=== PATIENT | female | born 1965 | race Caucasian/White ===

== ENCOUNTER 2019-02-21 11:38 | Day surgery (SDC) | payer OTHER ==
[2019-02-20 16:16] VITALS: BMI 22.4
[2019-02-21 12:03] LABS: BASO % 1.4 % (0-2.0); EOS % 1.5 % (0-4.5); HEMATOCRIT 41.4 % (32.4-45.2); HEMOGLOBIN 14.3 GM/dL (10.7-15.3); LYMPH % 37.6 % (8-40); MCH 31.7 pg (25.7-33.7); MCHC 34.6 g/dl (32.0-36.0); MEAN CELL VOLUME 91.7 fl (80-96); MEAN PLT VOLUME 8.9 fl (7.5-11.1); MONO % 10.1 % (3.8-10.2); NEUT % 49.4 % (42.8-82.8); PLATELET COUNT 148 K/MM3 (134-434); RBC 4.52 M/mm3 (3.60-5.2); RDW 12.9 % (11.6-15.6)
[2019-02-21 12:08] LABS: EPI CELLS 8.1 /HPF (0-5/HPF); URINE APPEARANCE CLEAR; URINE BILIRUBIN NEGATIVE (NEGATIVE); URINE CASTS 5 /lpf (0-8); URINE COLOR YELLOW; URINE GLUCOSE (UA) NEGATIVE (NEGATIVE); URINE KETONE NEGATIVE (NEGATIVE); URINE LEUK ESTERASE TRACE (NEGATIVE); URINE NITRITE NEGATIVE (NEGATIVE); URINE PROTEIN NEGATIVE (NEGATIVE); URINE RBC 1 /hpf (0-4); URINE UROBILINOGEN 0.2 mg/dL (0.2-1.0); URINE WBC 7 /hpf (0-5)
[2019-02-21 12:17] LABS: INR 1.08 (0.83-1.09); PROTHROMBIN TIME (PATIENT) 12.7 SEC (9.7-13.0)
[2019-02-21 12:34] LABS: ALBUMIN 4.2 g/dl (3.4-5.0); ALK PHOS 90 U/L (45-117); ANION GAP 4 MMOL/L (8-16); BILIRUBIN,TOTAL 0.8 mg/dL (0.2-1); BLOOD UREA NITROGEN 20 mg/dL (7-18); CALCIUM 9.3 mg/dL (8.5-10.1); CHLORIDE 105 mmol/L (98-107); CO2 29 mmol/L (21-32); CREATININE 0.7 mg/dL (0.55-1.3); GLUCOSE,RANDOM 82 mg/dL (74-106); POTASSIUM 4.4 mmol/L (3.5-5.1); SGOT/AST 21 U/L (15-37); SGPT/ALT 21 U/L (13-61); SODIUM 138 mmol/L (136-145); TOT PROT 7.6 g/dl (6.4-8.2)
--- NOTE | 2019-02-21 13:07 | HP ---
History & Physical Update - History History: No Change - Physical Physical: No Change - Assessment Assessment: No Change - Plan Plan: No Change
[2019-02-21] MEDS ORDERED: ROCURONIUM BROMIDE 50 MG/5 ML VIAL ONE (13:15)
[2019-02-21] MEDS ORDERED: KETAMINE HCL 200 MG/20 ML VIAL ONE (13:15)
[2019-02-21] MEDS ORDERED: MIDAZOLAM HCL 2 MG/2 ML SINGLE DOSE VIAL ONE (13:15)
[2019-02-21] MEDS ORDERED: DESFLURANE GAS 240 ML BOTTLE IH ONE (13:32)
[2019-02-21] MEDS ORDERED: KETOROLAC TROMETHAMINE 30 MG/1 ML VIAL ONE (13:52)
[2019-02-21] MEDS ORDERED: ONDANSETRON 4 MG/2 ML VIAL IVPUSH PRN (13:54)
[2019-02-21] MEDS ORDERED: oxyCODONE HCL 5 MG TABLET PO PRN (13:54)
[2019-02-21] MEDS ORDERED: LACTATED RINGERS SOLUTION 1,000 ML IV SCH (14:00)
[2019-02-21] MEDS ORDERED: ceFAZolin SODIUM 1 GM VIAL IVPB ONE (14:03)
[2019-02-21] MEDS ORDERED: ePHEDrine SULFATE 50 MG/1 ML AMPULE ONE (14:05)
[2019-02-21] MEDS ORDERED: GLYCOPYRROLATE 0.2 MG/1 ML VIAL ONE (14:18)
[2019-02-21] MEDS ORDERED: NEOSTIGMINE METHYLSULFATE 0.5 MG/ML - 10 ML MDV ONE (14:18)
[2019-02-21] MEDS ORDERED: BUPIVACAINE HCL/PF 0.25% (2.5MG/ML) 10 ML VIAL IJ ONE (14:46)
--- NOTE | 2019-02-21 15:17 | OP ---
<Leilani Lane - Last Filed: 02/21/19 15:12> Operative Note - Note: Operative Date: 02/21/19 Pre-Operative Diagnosis: abdominal pain, dyspareunia Operation: dilation and currettage, endometrial polyp biopsy, laparoscopy with enterolysis Surgeon: Santi Mcbride Co Founder And President: Leilani Lane Anesthesiologist/CAFE WORKER: Debbie Houser Anesthesia: General Specimens Removed: endometrial polpy biopsy and endometrial currettings Estimated Blood Loss (mls): 10 Blood Volume Replaced (mls): 50 Fluid Volume Replaced (mls): 1,200 Operative Report Dictated: Yes <Santi Mcbride - Last Filed: 02/21/19 15:20> Operative Note - Note: Blood Volume Replaced (mls): 0
--- NOTE | 2019-02-21 15:18 | SURG ---
Surgery Utility Person Note Utility Person: Leilani Lane PA-C Date of Service: 02/21/19 Diagnosis: abdominal pain, dyspareunia Procedure: dilation and currettage, endometrial polyp biopsy, laparoscopy with enterolysis I was present for the entirety of the operative procedure. For further detail, please refer to operative report.
[2019-02-21] MEDS ORDERED: ATROPINE SULFATE 1 MG/10 ML DISP.SYRIN ONE (15:41)
[2019-02-21] MEDS ORDERED: ACETAMINOPHEN 1000 MG/100 ML VIAL (NON FORMULARY) IVPB ONE ×2 (15:45→16:51)
[2019-02-21] MEDS ORDERED: ACETAMINOPHEN INJECTION 100 ML IVPB ONE (15:48)
[2019-02-21] MEDS ORDERED: ATROPINE SO4 0.4 MG/1 ML VIAL IVPUSH ONE (16:51)
[2019-02-21 19:18] VITALS: BP 110/64; PULSE 55; TEMP 97.9
[2019-02-22] MEDS ORDERED: ESTRADIOL 1 MG PO SCH (10:00)
[2019-02-22] MEDS ORDERED: MULTIVITAMINS (DAILY MVI) TABLET (FP) PO SCH (10:00)
[2019-02-22] MEDS ORDERED: CHOLECALCIFEROL (VITAMIN D3) 1,000 UNIT TABLET (FP) PO SCH (10:00)
--- NOTE | 2019-02-23 18:00 | PATH ---
Surgical Pathology Report Patient Name: DAMI BRITTON [facility]. Rec. #: [id number] /Age/Gender: 1965 (Age: 53) / F Account: [id number] Location: [facility] SURGICAL Taken: 02/21/2019 Received: 02/22/2019 Reported: 02/23/2019 Physicians: Karan Rowan MD Specimen(s) Received A: ENDOMETRIAL CURETTINGS B: ENDOMETRIAL POLYP Clinical History Ovarian cyst, pelvic pain, polyp corpus uteri Final Diagnosis A. ENDOMETRIAL CURETTINGS, DILATION AND CURETTAGE: POLYPOID FRAGMENTS OF PROLIFERATIVE ENDOMETRIUM WITHIN A FIBROUS STROMA CONSISTENT WITH ENDOMETRIAL POLYP. B. ENDOMETRIAL POLYP, POLYPECTOMY: POLYPOID FRAGMENTS OF PROLIFERATIVE ENDOMETRIUM WITHIN A FIBROUS STROMA CONSISTENT WITH ENDOMETRIAL POLYP. Electronically Signed Hannah Steen M.D. Gross Description A. Received in formalin labeled "endometrial curettings," is a 1.6 cm greatest dimension rosas soft tissue fragment. The formalin is filtered and the specimen is submitted in toto in one cassette. B. Received in formalin labeled "endometrial polyp," is a 2.0 x 1.4 x 0.2 cm aggregate of rosas, irregular to polypoid portions of soft tissue. The specimen is submitted in toto in one cassette. /02/22/2019 saudi02/22/2019
--- NOTE | 2019-03-06 09:54 | OP ---
DATE OF OPERATION: 02/21/2019 PREOPERATIVE DIAGNOSES: 1. Chronic, intractable, deteriorating pelvic pain of 6 months' duration. 2. History of ovarian cyst. 3. Endometrial polyp. POSTOPERATIVE DIAGNOSES: 1. Chronic, intractable, deteriorating pelvic pain of 6 months' duration. 2. History of ovarian cyst. 3. Endometrial polyp. 4. Left-sided pelvic adhesions between small intestines, pelvic sidewall, and left round ligament. OPERATION: 1. Hysteroscopy. 2. Polypectomy. 3. Dilatation and curettage. 4. Exploratory laparoscopy. 5. Laparoscopic lysis of left-sided adhesions. SURGEON: Santi Mcbride MD ANESTHESIA: General. PULP MIXER: HANS PROCEDURE AND FINDINGS: Under general anesthesia in dorsal lithotomy position, patient was prepped and draped in the usual way. Pelvic examination was done under anesthesia with uterus being essentially normal size and no adnexal pathology. Minimal pelvic relaxation was noted. Cervix was grasped with a tenaculum, and hysteroscopy was carried out. Left-sided fundal polyp, at least 2 cm in size, was noted in the background of atrophic endometrium. Endocervix was within normal limits. Hysteroscope was withdrawn, and saline was allowed to escape from the cavity. Cervix was dilated using forceps. Polyp was removed in several pieces. Sharp curettage was performed as well. Fragments of polyp and curettage were sent for pathology as separate specimen. Post-curettage hysteroscopy showed relatively empty cavity with mild surface oozing. Hulka uterine manipulator was placed in the cavity, and bladder was emptied with straight catheter. Laparoscopy was carried out as follows. Abdomen was entered through intraumbilical, 5-mm incision with a Veress needle and insufflated with 3.5 L of carbon dioxide. A 5-mm disposable trocar was introduced under direct vision. Subsequently, 2 additional 5-mm disposable trocars were placed to the left and right of the umbilicus at the same level. Normal to upper-normal size uterus was noted. Anterior cul-de-sac was clean with minimal adhesions from the section. Posterior cul-de-sac was entirely clear. Right adnexa were completely normal. The only pathology noted were loops of small intestine pulled to the left side and adhered to the left round ligament and left pelvic sidewall. Otherwise, there was no evidence of any infection, irritation, endometriosis, etc. Upper abdomen and bowel appeared normal as well. Bowel was gently elevated with atraumatic grasper, and using LigaSure device, the area of adherence was evaluated and incised. In close proximity to round ligament and away from the small bowel, dissection was carried out, freeing the small intestine. Left-sided pelvic sidewall was also opened, and at that point, bowel dropped cephalad, completely away from the pelvis. The area was examined, and hemostasis was excellent. At that point, left tube and ovary were seen clearly, and they were also within normal limits. At that point, the surgery was completed. Gas was allowed to escape from the abdomen, and all ports and instruments were withdrawn under direct vision. Incisions were closed with Dermabond which was also used for the dressing. Postop examination was within normal limits. Patient withstood the surgery as well as anesthesia very well. Blood loss was about 10 mL for both parts of the operation. Patient was awakened and transferred to PACU, comfortable and stable. MD HAYLEY JACKSON/[id number]
== END 2019-02-21 18:15 | disposition home or self-care (01) ==
LOC: JASU-SURG 11:38
PROVIDERS: ATTEND Specialist
PROC: 0UJD8ZZ Inspection of Uterus and Cervix, Via Natural or Artificial Opening Endoscopic (ICD-10-PCS; 2019-02-21)
PROC: 0DNW4ZZ Release Peritoneum, Percutaneous Endoscopic Approach (ICD-10-PCS; principal; 2019-02-21 13:30)
PROC: 0UB97ZX Excision of Uterus, Via Natural or Artificial Opening, Diagnostic (ICD-10-PCS; 2019-02-21 13:30)
PROC: 0UDB7ZX Extraction of Endometrium, Via Natural or Artificial Opening, Diagnostic (ICD-10-PCS; 2019-02-21 13:30)
DX: N73.6 Female pelvic peritoneal adhesions (postinfective) (principal); R10.2 Pelvic and perineal pain; N84.0 Polyp of corpus uteri
CPT/HCPCS: 36415; 80053; 81003; 85025; 85610; 88305-TC; 94760; J0131